=== PATIENT | male | born 1940 | race Caucasian/White ===

== ENCOUNTER 2016-08-03 17:10 | Inpatient (IN) | payer MEDICARE ==
[~2016-08-03] VITALS: Ht 180.3 cm; Wt 79.8 kg
[~2016-08-03 17:10] MED LIST: ACYCLOVIR200 MG ORAL; BYSTOLIC2.5 MG ORAL; CENTRUM COMPLE1 EAC1 PO; COZAAR50 MG ORAL; EPZICOM1 TAB ORAL; ISENTRESS400 MG ORAL; LUTEIN20 MG PO; METHENAMINE HIPPURATE PO; OMEPRAZOLE20 M3 ORAL; TESTOSTERONE IM; VIT D3 PO; ZANTAC150 MG ORAL; [UNRECOGNIZED DRUG - OTHER] PO
[2016-08-03 17:45] VITALS: BP 117/85
[2016-08-03 18:35] LABS: MEAN CORPUSCULAR HEMOGLOBIN 23.3 PG (27.0-31.0); MEAN CORPUSCULAR HGB CONC 31.4 G/DL (32.0-36.0); MEAN CORPUSCULAR VOLUME 74 FL (80-99); MEAN PLATELET VOLUME 4.9 FL (6.5-10.1); PLATELET COUNT 369 K/UL (150-450); RED BLOOD COUNT 3.11 M/UL (4.70-6.10); RED CELL DISTRIBUTION WIDTH 14.6 % (11.6-14.8); WHITE BLOOD COUNT 7.2 K/UL (4.8-10.8)
[2016-08-03 18:39] LABS: APPEARANCE,URINE CLOUDY; KETONES,URINE NEGATIVE (NEGATIVE); LEUKOCYTE ESTERASE ,URINE 3+ (NEGATIVE); NITRITE,URINE POSITIVE (NEGATIVE); PH,URINE 5 (4.5-8.0); PROTEIN,URINE 3+ (NEGATIVE); UROBILINOGEN,URINE NORMAL MG/DL (0.0-1.0)
[2016-08-03 18:45] LABS: PROTHROMBIN TIME 10.3 SEC (9.30-11.50)
[2016-08-03 18:58] LABS: ALANINE AMINOTRANSFERASE 10 U/L (3-41); ANION GAP 15 (5-15); ASPARTATE AMINO TRANSFERASE 20 U/L (5-40); CALCIUM 9.3 mg/dL (8.6-10.2); CARBON DIOXIDE 22 mEQ/L (20-30); CHLORIDE 100 mEQ/L (98-107); CREATININE 2.7 mg/dL (0.7-1.2); HEMOLYSIS 1; LIPASE 68 U/L (< 60); SODIUM 137 mEQ/L (135-145); TOTAL PROTEIN 7.3 g/dL (6.6-8.7)
[2016-08-03 19:04] LABS: BACTERIA,URINE MANY /HPF; RBC,URINE TNTC /HPF (0 - 0); WBC,URINE TNTC /HPF (0 - 0)
[2016-08-03 19:08] VITALS: BP 141/61
[2016-08-03] MEDS ORDERED: cefTRIAXone 1 GM in NS 55 ML IVPB ONE (20:00)
[2016-08-03 20:06] LABS: EOSINOPHILS % (MANUAL) 1 % (0-3); LYMPHOCYTES % (MANUAL) 36 % (20-45); NEUTROPHILS % (MANUAL) 55 % (45-75); NUCLEATED RED BLOOD CELLS 1 /100 WBC; TOTAL CELLS COUNTED 100
[2016-08-03 20:10] LABS: ANISOCYTOSIS 1+; BAND NEUTROPHILS % (MANUAL) 0 % (0-8); BASOPHILS % (MANUAL) 0 % (0-2); HYPOCHROMASIA 2+; MICROCYTES 2+; PLATELET ESTIMATE ADEQUATE; PLATELET MORPHOLOGY NORMAL; POLYCHROMASIA 1+
[2016-08-03 21:25] VITALS: BP 148/74
[2016-08-03] MEDS ORDERED: Zolpidem 5mg tab ORAL PRN (21:30)
[2016-08-03] MEDS ORDERED: Miralax 17gm pkt ORAL PRN (21:30)
[2016-08-03 21:40] VITALS: BP 153/73
[2016-08-03 22:00] VITALS: BP 135/86
--- NOTE | 2016-08-03 22:10 | Emergency Room Report ---
History of Present Illness General Chief Complaint: Abnormal Labs Source: Patient Present Illness HPI The patient was sent by his doctor for low hematocrit. 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 At this time is getting dyspnea on exertion and dizziness when he stands. He denies any chest pain. His doctor rojelio labs and stated he needed to have a transfusion. The patient has had urethral reconstruction and had a suprapubic catheter for many years. He currently has a fairly that occasionally needs to be irrigated. Several weeks ago he was on 3 antibiotics for a bladder infection. On Sunday he was given a dose of gentamicin by his doctor. He denies any fevers, chills, nausea, vomiting, diarrhea. Allergies: Coded Allergies: CIPROFLOXACIN (Verified Allergy, Intermediate, RASH, 08/14/12) CIPROFLOXACIN HCL (Verified Allergy, Intermediate, RASH, 08/14/12) LATEX (Verified Allergy, Intermediate, RASH, 08/14/12) SILICONE (Verified Allergy, Intermediate, RASH, 08/14/12) SULFA (SULFONAMIDE ANTIBIOTICS) (Verified Allergy, Intermediate, RASH, 08/14) SHELLFISH DERIVED (Unverified Allergy, Unknown, 08/03/16) Uncoded Allergies: ORAL ANTIBIOTIC (Adverse Reaction, Unknown, 08/03/16) Patient History Past Medical History: see triage record Past Surgical History: other - suprapubic cath - urethral reconstruction and razo at this time Social History: Denies: smoking Social History Narrative at home Reviewed Nursing Documentation: PMH: Agreed, PSxH: Agreed Review of Systems All Other Systems: negative except mentioned in HPI Physical Exam Vital Signs Date Time Temp Pulse Resp B/P Pulse Ox O2 Delivery O2 Flow Rate FiO2 08/03/16 17:19 97.9 73 15 135/72 97 Room Air Sp02 EP Interpretation: reviewed, normal General Appearance: well appearing, no apparent distress, GCS 15 Head: normocephalic Eyes: bilateral eye EOMI, bilateral eye PERRL, bilateral eye conjunctivae pale ENT: moist mucus membranes Neck: supple Respiratory: lungs clear, normal breath sounds Cardiovascular #1: regular rate, rhythm Cardiovascular #2: 2+ radial (R) Gastrointestinal: normal inspection, normal bowel sounds, non tender, no mass, non-distended Genitourinary: other - razo Musculoskeletal: back normal, gait/station normal, normal range of motion Neurologic: alert, oriented x3, grossly normal Psychiatric: mood/affect normal Skin: warm/dry, pallor Medical Decision Making Diagnostic Impression: Primary Impression: Anemia Qualified Codes: D64.9 - Anemia, unspecified Additional Impressions: UTI (urinary tract infection) Qualified Codes: N30.00 - Acute cystitis without hematuria S/P urethral reconstruction ER Course Patient presents with symptomatic anemia. No evidence of acute bleeding at this time. Need to exclude cardiac involvement. Also, labs sent for possible transfusion. Patient states he might need to irrigate his razo (which he has done in past) UTI with indwelling razo and history of resistant organisms. Blood transfusion discussed with patient and initiated. Improved with treatment. Admit med Dr. Walker. Laboratory Tests Test 08/03/16 18:10 White Blood Count 7.2 K/UL (4.8-10.8) Red Blood Count 3.11 M/UL (4.70-6.10) L Hemoglobin 7.2 G/DL (14.2-18.0) L Hematocrit 23.1 % (42.0-52.0) L Mean Corpuscular Volume 74 FL (80-99) L Mean Corpuscular Hemoglobin 23.3 PG (27.0-31.0) L Mean Corpuscular Hemoglobin Concent 31.4 G/DL (32.0-36.0) L Red Cell Distribution Width 14.6 % (11.6-14.8) Platelet Count 369 K/UL (150-450) Mean Platelet Volume 4.9 FL (6.5-10.1) L Neutrophils (%) (Auto) % (45.0-75.0) Lymphocytes (%) (Auto) % (20.0-45.0) Monocytes (%) (Auto) % (1.0-10.0) Eosinophils (%) (Auto) % (0.0-3.0) Basophils (%) (Auto) % (0.0-2.0) Differential Total Cells Counted 100 Neutrophils % (Manual) 55 % (45-75) Lymphocytes % (Manual) 36 % (20-45) Monocytes % (Manual) 8 % (1-10) Eosinophils % (Manual) 1 % (0-3) Basophils % (Manual) 0 % (0-2) Band Neutrophils 0 % (0-8) Nucleated Red Blood Cells 1 /100 WBC Platelet Estimate Adequate Platelet Morphology Normal Polychromasia 1+ Hypochromasia 2+ Anisocytosis 1+ Microcytosis 2+ Prothrombin Time 10.3 SEC (9.30-11.50) Prothrombin Time INR 1.0 (0.9-1.1) PTT 30 SEC (23-33) Urine Color Pale yellow Urine Appearance Cloudy Urine pH 5 (4.5-8.0) Urine Specific [place] 1.015 (1.005-1.035) Urine Protein 3+ (NEGATIVE) H Urine Glucose (UA) Negative (NEGATIVE) Urine Ketones Negative (NEGATIVE) Urine Occult Blood 5+ (NEGATIVE) H Urine Nitrite Positive (NEGATIVE) H Urine Bilirubin Negative (NEGATIVE) Urine Urobilinogen Normal MG/DL (0.0-1.0) Urine Leukocyte Esterase 3+ (NEGATIVE) H Urine RBC Tntc /HPF (0 - 0) H Urine WBC Tntc /HPF (0 - 0) H Urine Squamous Epithelial Cells None /LPF (NONE/OCC) Urine Bacteria Many /HPF (NONE) H Sodium Level 137 mEQ/L (135-145) Potassium Level 4.0 mEQ/L (3.4-4.9) Chloride Level 100 mEQ/L (98-107) Carbon Dioxide Level 22 mEQ/L (20-30) Anion Gap 15 (5-15) Blood Urea Nitrogen 30 mg/dL (7-23) H Creatinine 2.7 mg/dL (0.7-1.2) H Estimate Glomerular Filtration Rate mL/min (>60) Glucose Level 103 mg/dL (74-106) Calcium Level 9.3 mg/dL (8.6-10.2) Total Bilirubin < 0.2 mg/dL (0.0-1.2) Aspartate Amino Transferase (AST) 20 U/L (5-40) Alanine Aminotransferase (ALT) 10 U/L (3-41) Alkaline Phosphatase 51 U/L (40-129) Total Protein 7.3 g/dL (6.6-8.7) Albumin 3.8 g/dL (3.5-5.2) Globulin 3.5 g/dL Albumin/Globulin Ratio 1.0 (1.0-2.7) Lipase 68 U/L (< 60) H EKG Diagnostic Results Rate: normal Rhythm: NSR ST Segments: no acute changes Rhythm Strip Diag. Results EP Interpretation: yes Rhythm: NSR, no PVC's, no ectopy Chest X-Ray Diagnostic Results Chest X-Ray Ordered: Yes # of Views/Limited/Complete: 1 View EP Interpretation: Yes Interpretation: no consolidation, no effusion, no pneumothorax, no acute cardiopulmonary disease Indication: Other Impression: No acute disease Interpreting ER Provider: Patricia Last Vital Signs Date Time Temp Pulse Resp B/P Pulse Ox O2 Delivery O2 Flow Rate FiO2 08/03/16 19:08 97.5 76 13 141/61 100 Room Air Status: improved Disposition: ADMITTED INPATIENT Condition: Serious Referrals: NON PHYSICIAN (PCP) Scott Gomez M.D. Aug 03, 2016 22:10
[2016-08-03 23:06] VITALS: BP 139/76
--- NOTE | 2016-08-03 23:53 | History and Physical ---
History of Present Illness General Date patient seen: Aug 03, 2016 Time patient seen: 21:00 Reason for Hospitalization: Abnormal Labs Present Illness Allergies: Coded Allergies: CIPROFLOXACIN (Verified Allergy, Intermediate, RASH, 08/14/12) CIPROFLOXACIN HCL (Verified Allergy, Intermediate, RASH, 08/14/12) LATEX (Verified Allergy, Intermediate, RASH, 08/14/12) SILICONE (Verified Allergy, Intermediate, RASH, 08/14/12) SULFA (SULFONAMIDE ANTIBIOTICS) (Verified Allergy, Intermediate, RASH, 08/14) SHELLFISH DERIVED (Unverified Allergy, Unknown, 08/03/16) Uncoded Allergies: ORAL ANTIBIOTIC (Adverse Reaction, Unknown, 08/03/16) Medication History Scheduled Acyclovir* (Acyclovir*), 200 MG ORAL DAILY, (Reported) Epzicom (Epzicom Tablet), 1 TAB ORAL DAILY, (Reported) Losartan Potassium* (Cozaar*), 50 MG ORAL TWICE A DAY, (Reported) Lutein (Lutein), 20 MG PO DAILY, (Reported) Multivitamin/Iron/Folic Acid (Centrum Complete Multivit Tab), 1 EACH PO DAILY, ( Reported) Nebivolol Hcl* (Bystolic*), 5 MG ORAL DAILY, (Reported) Omeprazole (Omeprazole), 20 MG ORAL DAILY, (Reported) Raltegravir (Isentress), 400 MG ORAL EVERY 12 HOURS, (Reported) Ranitidine Hcl* (Zantac*), 300 MG ORAL DAILY, (Reported) [Methenam Colleen], 1 TAB PO BID, (Reported) [Protandim Anti Oxid], 1 TAB PO DAILY, (Reported) [Testosterone], 0.6 ML IM QWEEK, (Reported) [Vit D3], 1 CAP PO DAILY, (Reported) Patient History Healthcare decision maker Resuscitation status Full Code Advanced Directive on File No Physical Exam Last 24 Hour Vital Signs Date Time Temp Pulse Resp B/P Pulse Ox O2 Delivery O2 Flow Rate FiO2 08/03/16 23:06 98.4 84 20 139/76 100 Room Air 08/03/16 22:00 83 18 135/86 100 Room Air 08/03/16 22:00 98.1 83 18 135/86 100 Room Air 08/03/16 19:08 97.5 76 13 141/61 100 Room Air 08/03/16 17:47 84 16 Room Air 08/03/16 17:45 98.4 81 22 117/85 99 Room Air 08/03/16 17:19 97.9 73 15 135/72 97 Room Air Laboratory Tests Test 08/03/16 18:10 White Blood Count 7.2 K/UL (4.8-10.8) Red Blood Count 3.11 M/UL (4.70-6.10) L Hemoglobin 7.2 G/DL (14.2-18.0) L Hematocrit 23.1 % (42.0-52.0) L Mean Corpuscular Volume 74 FL (80-99) L Mean Corpuscular Hemoglobin 23.3 PG (27.0-31.0) L Mean Corpuscular Hemoglobin Concent 31.4 G/DL (32.0-36.0) L Red Cell Distribution Width 14.6 % (11.6-14.8) Platelet Count 369 K/UL (150-450) Mean Platelet Volume 4.9 FL (6.5-10.1) L Neutrophils (%) (Auto) % (45.0-75.0) Lymphocytes (%) (Auto) % (20.0-45.0) Monocytes (%) (Auto) % (1.0-10.0) Eosinophils (%) (Auto) % (0.0-3.0) Basophils (%) (Auto) % (0.0-2.0) Differential Total Cells Counted 100 Neutrophils % (Manual) 55 % (45-75) Lymphocytes % (Manual) 36 % (20-45) Monocytes % (Manual) 8 % (1-10) Eosinophils % (Manual) 1 % (0-3) Basophils % (Manual) 0 % (0-2) Band Neutrophils 0 % (0-8) Nucleated Red Blood Cells 1 /100 WBC Platelet Estimate Adequate Platelet Morphology Normal Polychromasia 1+ Hypochromasia 2+ Anisocytosis 1+ Microcytosis 2+ Prothrombin Time 10.3 SEC (9.30-11.50) Prothromb Time International Ratio 1.0 (0.9-1.1) Activated Partial Thromboplast Time 30 SEC (23-33) Urine Color Pale yellow Urine Appearance Cloudy Urine pH 5 (4.5-8.0) Urine Specific [place] 1.015 (1.005-1.035) Urine Protein 3+ (NEGATIVE) H Urine Glucose (UA) Negative (NEGATIVE) Urine Ketones Negative (NEGATIVE) Urine Occult Blood 5+ (NEGATIVE) H Urine Nitrite Positive (NEGATIVE) H Urine Bilirubin Negative (NEGATIVE) Urine Urobilinogen Normal MG/DL (0.0-1.0) Urine Leukocyte Esterase 3+ (NEGATIVE) H Urine RBC Tntc /HPF (0 - 0) H Urine WBC Tntc /HPF (0 - 0) H Urine Squamous Epithelial Cells None /LPF (NONE/OCC) Urine Bacteria Many /HPF (NONE) H Sodium Level 137 mEQ/L (135-145) Potassium Level 4.0 mEQ/L (3.4-4.9) Chloride Level 100 mEQ/L (98-107) Carbon Dioxide Level 22 mEQ/L (20-30) Anion Gap 15 (5-15) Blood Urea Nitrogen 30 mg/dL (7-23) H Creatinine 2.7 mg/dL (0.7-1.2) H Estimat Glomerular Filtration Rate mL/min (>60) Glucose Level 103 mg/dL (74-106) Calcium Level 9.3 mg/dL (8.6-10.2) Total Bilirubin < 0.2 mg/dL (0.0-1.2) Aspartate Amino Transf (AST/SGOT) 20 U/L (5-40) Alanine Aminotransferase (ALT/SGPT) 10 U/L (3-41) Alkaline Phosphatase 51 U/L (40-129) Total Protein 7.3 g/dL (6.6-8.7) Albumin 3.8 g/dL (3.5-5.2) Globulin 3.5 g/dL Albumin/Globulin Ratio 1.0 (1.0-2.7) Lipase 68 U/L (< 60) H Height (Feet): 5 Height (Inches): 11.00 Weight (Pounds): 176 Medications Current Medications Medications (Trade) Dose Ordered Sig/Jason Route PRN Reason Start Time Stop Time Status Last Admin Dose Admin Acetaminophen (Tylenol) 650 mg Q4H PRN ORAL Mild Pain (Pain Scale 1-3) 08/03/16 21:30 09/02/16 21:29 Bisacodyl (Dulcolax) 10 mg HSPRN PRN RECTAL Constipation 08/03/16 21:30 09/02/16 21:29 Dextrose (Dextrose 50%) STAT PRN IV Hypoglycemia 6/22/17 21:30 09/02/16 21:29 Diphenhydramine HCl (Benadryl) 25 mg Q6H PRN ORAL Itching/Pruritis 08/03/16 21:30 09/02/16 21:29 Docusate Sodium (Colace) 100 mg EVERY 12 HOURS ORAL 08/04/16 09:00 09/03/16 08:59 Ondansetron HCl (Zofran) 4 mg Q6H PRN IVP Nausea & Vomiting 08/03/16 21:30 09/02/16 21:29 Polyethylene Glycol (Miralax) 17 gm HSPRN PRN ORAL Constipation 08/03/16 21:30 09/02/16 21:29 Sodium Chloride 1,000 ml @ 10 mls/hr Q24H ONCE IV 08/03/16 20:07 08/04/16 20:06 Sodium Chloride (0.45% NS 1000ml) 1,000 ml @ 75 mls/hr [id number] IV 08/03/16 22:16 09/02/16 22:15 Zolpidem Tartrate (Ambien) 5 mg HSPRN PRN ORAL Insomnia 08/03/16 21:30 09/02/16 21:29 Abundio Oliveira M.D. Aug 03, 2016 23:53
[2016-08-04 00:43] VITALS: BP 139/73
[2016-08-04 04:00] VITALS: BP 138/55
[2016-08-04 06:03] LABS: BASOPHILS % (AUTO) 0.6 % (0.0-2.0); EOSINOPHILS % (AUTO) 1.5 % (0.0-3.0); LYMPHOCYTES % (AUTO) 36.2 % (20.0-45.0); MEAN CORPUSCULAR HEMOGLOBIN 24.5 PG (27.0-31.0); MEAN CORPUSCULAR HGB CONC 31.8 G/DL (32.0-36.0); MEAN CORPUSCULAR VOLUME 77 FL (80-99); MEAN PLATELET VOLUME 4.8 FL (6.5-10.1); MONOCYTES % (AUTO) 9.8 % (1.0-10.0); NEUTROPHILS % (AUTO) 51.9 % (45.0-75.0); PLATELET COUNT 364 K/UL (150-450); RED BLOOD COUNT 3.65 M/UL (4.70-6.10); RED CELL DISTRIBUTION WIDTH 16.3 % (11.6-14.8); WHITE BLOOD COUNT 6.5 K/UL (4.8-10.8)
[2016-08-04 06:41] LABS: ALANINE AMINOTRANSFERASE 9 U/L (3-41); ALBUMIN/GLOBULIN RATIO 1.1 (1.0-2.7); ANION GAP 15 (5-15); ASPARTATE AMINO TRANSFERASE 19 U/L (5-40); CALCIUM 9.3 mg/dL (8.6-10.2); CARBON DIOXIDE 22 mEQ/L (20-30); CHLORIDE 99 mEQ/L (98-107); CREATININE 2.3 mg/dL (0.7-1.2); HEMOLYSIS 1; POTASSIUM 4.4 mEQ/L (3.4-4.9); SODIUM 136 mEQ/L (135-145); TOTAL PROTEIN 7.2 g/dL (6.6-8.7)
[2016-08-04 06:42] LABS: HEMOLYSIS 5; IRON 24 ug/dL (59-158); TOTAL IRON BINDING CAPACITY 278 ug/dL (250-400)
[2016-08-04 06:46] LABS: FERRITIN 15 ng/mL (10-230)
[2016-08-04 07:59] VITALS: BP 145/80
[2016-08-04] MEDS ORDERED: Isentress 400mg tab ORAL SCH (09:00)
[2016-08-04] MEDS ORDERED: Acyclovir 200mg Cap ORAL SCH (09:00)
[2016-08-04] MEDS ORDERED: Bystolic 2.5mg Tab ORAL SCH (09:00)
[2016-08-04] MEDS ORDERED: Docusate 100mg cap ORAL SCH (09:00)
[2016-08-04] MEDS ORDERED: Epzicom tab ORAL SCH (09:00)
[2016-08-04 10:19] LABS: RETICULOCYTE COUNT 1.1 % (0.0-2.0)
[2016-08-04] MEDS ORDERED: cefTRIAXone 1 GM in D5W 55 ML IVPB SCH (20:00)
[2016-08-06 10:52] LABS: OTHERS PATHOLOGIST COMMENT
--- NOTE | 2016-08-07 20:25 | Cardiology Report ---
APPROVED REPORT EKG Measurement Heart [id number] Normal sinus rhythm Normal ECG
--- NOTE | 2016-08-11 21:02 | Discharge Summary ---
Discharge Summary Hospital Course Date of Admission Aug 03, 2016 at 20:30 Date of Discharge Aug 04, 2016 at 10:40 Admitting Diagnosis symptomatic anemia/UTI HPI Kahlil WestJr is a 76 year old male who was admitted on Aug 03, 2016 at 20 :30 for Symptomatic Anemia/Urinary Tract Infection Discharge Medications Continued Medications: Acyclovir* (Acyclovir*) 200 Mg Capsule 200 MG ORAL DAILY Epzicom (Epzicom Tablet) 1 Tab Tab 1 TAB ORAL DAILY, #30 TAB Lutein (Lutein) 20 Mg Capsule 20 MG PO DAILY Multivitamin/Iron/Folic Acid (Centrum Complete Multivit Tab) 1 Each Tablet 1 EACH PO DAILY Nebivolol Hcl* (Bystolic*) 2.5 Mg Tablet 5 MG ORAL DAILY Omeprazole (Omeprazole) 20 Mg Tablet.dr 20 MG ORAL DAILY, #30 TAB Raltegravir (Isentress) 400 Mg Tab 400 MG ORAL EVERY 12 HOURS Ranitidine Hcl* (Zantac*) 150 Mg Tablet 300 MG ORAL DAILY, #30 TAB [Methenam Colleen] () 1 TAB PO BID [Protandim Anti Oxid] () 1 TAB PO DAILY [Testosterone] () 0.6 ML IM QWEEK [Vit D3] () 1 CAP PO DAILY Discontinued Medications: Losartan Potassium* (Cozaar*) 50 Mg Tablet 50 MG ORAL TWICE A DAY Discharge Condition Upon Discharge: stable Discharge Disposition Patient was discharged to Discharge Diagnoses: Abundio Oliveira M.D. Aug 11, 2016 21:02
== END 2016-08-04 10:40 | disposition left against medical advice (07) | DRG 812 ==
LOC: ENRESERVTM → ENRESERVDT → EMR 18:00 → EDUNIT# 18:00 → 4E 20:30 → EDBEDREQ 20:57 → 4E 22:37
PROC: 30233N1 Transfusion of Nonautologous Red Blood Cells into Peripheral Vein, Percutaneous Approach (ICD-10-PCS; principal; 2016-08-03)
DX: D64.9 Anemia, unspecified (principal); N39.0 Urinary tract infection, site not specified; Z88.2 Allergy status to sulfonamides; Z88.8 Allergy status to other drugs, medicaments and biological substances; Z88.1 Allergy status to other antibiotic agents; Z91.040 Latex allergy status
CPT/HCPCS: 36415; 71010; 80053; 81003; 82607; 82728; 82746; 83540; 83550; 83690; 83735; 84100; 84443; 85007; 85025; 85044; 85610; 85730; 86850; 86900; 86901; 86920; 87086; 87181; 93005